=== PATIENT | male | born 1965 | race Caucasian/White ===

== ENCOUNTER 2023-02-11 07:24 | Outpatient (CLI) | payer BC, SELFPAY | END 2023-02-11 07:25 | disposition home or self-care (01) | LOC: NFLDREF 10:05 | PROVIDERS: PCP Family Medicine; Referring Provider Family Medicine; Visit Provider Family Medicine | DX: Z13.6 Encounter for screening for cardiovascular disorders (principal); Z13.9 Encounter for screening, unspecified | CPT/HCPCS: 80048; 80061 ==

== ENCOUNTER 2025-03-16 09:13 | Outpatient (CLI) | payer BC, SELFPAY | END 2025-03-16 09:14 | disposition home or self-care (01) | LOC: NFLDREF 03-19 18:36 | PROVIDERS: PCP Family Medicine; Referring Provider Family Medicine; Visit Provider Family Medicine | DX: E78.5 Hyperlipidemia, unspecified (principal); R73.03 Prediabetes; R25.2 Cramp and spasm | CPT/HCPCS: 80053; 80061; 83735 ==